=== PATIENT | male | born 1980 | race American Indian/Alaskan Native ===

== ENCOUNTER 2018-06-05 08:13 | Emergency (ER) | payer OTHER ==
[2018-06-05 08:14] VITALS: BMI 19.1
[2018-06-05] MEDS ORDERED: Sodium Chloride 0.9% 1,000 ML IV STA ×2 (09:37→14:52)
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
[2018-06-05 11:48] LABS: BASO # 0.03 K/mm3 (0.0-2.0); BASO % 0.2 % (0.0-3.0); GRAN # 11.74 (1.4-6.5); GRAN % 87.1 % (50.0-68.0); HEMOGLOBIN 13.6 g/dL (14.0-18.0); LYMPH # 1.2 (1.2-3.4); LYMPH % 8.7 % (22.0-35.0); MEAN CELL VOLUME 91.3 fl (80.0-105.0); MEAN CORPUSCULAR HEMOGLOBIN 32.9 pg (25.0-35.0); MEAN PLATELET VOLUME 9.8 fl (7.0-11.0); MONO # 0.5 (0.1-0.6); RBC 4.14 10^6/uL (3.5-6.1); RED CELL DISTRIBUTION WIDTH 12.9 % (11.5-14.5); WHITE BLOOD COUNT 13.5 10^3/ul (4.5-11.0)
[2018-06-05 13:47] LABS: ALB/GLOB RATIO 1.3 (1.1-1.8); ALBUMIN 3.7 g/dL (3.0-4.8); ALT/SGPT 20 U/L (7-56); AST/SGOT 43 U/L (17-59); BLOOD UREA NITROGEN 10 mg/dL (7-21); CALCIUM 8.8 mg/dL (8.4-10.5); GFR AFRICAN-AMERICAN > 60; GFR NON-AFRICAN AMERICAN > 60; LIPASE 63 U/L (23-300)
[2018-06-05 14:15] VITALS: TEMP 98.7
[2018-06-05] MEDS ORDERED: DiphenhydrAMINE 50 mg/ml Inj IVP STA (14:52)
[2018-06-05] MEDS ORDERED: Lidocaine 2% Viscous 100 ml PO STA (14:53)
[2018-06-05] MEDS ORDERED: Alum-Mag Hydrox-Simethicone Susp (30 mL) PO STA (14:53)
[2018-06-05] MEDS ORDERED: Atrop/Hyosc/Scopal/PB Elixir (120 ml) PO STA (14:53)
[2018-06-05] MEDS ORDERED: Morphine 2 mg/ml ISec IVP STA (15:10)
[2018-06-05] MEDS ORDERED: Iohexol 350 MG/100 ML VIAL ONE (15:12)
--- NOTE | 2018-06-05 15:48 | CT ---
Date of service: 06/05/2018 PROCEDURE: CT Abdomen and Pelvis with contrast HISTORY: abdominal pain COMPARISON: 06/27/2016 TECHNIQUE: Contrast dose: 100 cc of Omni 350 Radiation dose: Total exam DLP = 217 mGy-cm. This CT exam was performed using one or more of the following dose reduction techniques: Automated exposure control, adjustment of the mA and/or kV according to patient size, and/or use of iterative reconstruction technique. FINDINGS: LOWER THORAX: Unremarkable. LIVER: Unremarkable. No gross lesion or ductal dilatation. GALLBLADDER AND BILE DUCTS: Unremarkable. PANCREAS: Unremarkable. No gross lesion or ductal dilatation. SPLEEN: Unremarkable. ADRENALS: Unremarkable. No mass. KIDNEYS AND URETERS: Unremarkable. No hydronephrosis. No solid mass. VASCULATURE: Unremarkable. No aortic aneurysm. BOWEL: Unremarkable. No obstruction. No gross mural thickening. APPENDIX: Normal appendix. There is a paucity of abdominal fat which makes identification of the appendix more difficult. There are no obvious inflammatory changes PERITONEUM: There is a small amount of free fluid LYMPH NODES: Unremarkable. No enlarged lymph nodes. BLADDER: Unremarkable. REPRODUCTIVE: Unremarkable. BONES: No acute fracture. OTHER FINDINGS: None. IMPRESSION: No acute intra-abdominal findings. There is a paucity of abdominal fat which makes identification of the appendix more difficult. There are no obvious inflammatory changes
[2018-06-05 16:49] VITALS: BP 148/72; PULSE 76; RESP 18; O2SAT 98
[2018-06-05 17:25] LABS: BARBITURATES, UR NEGATIVE (NEGATIVE)
[2018-06-05 17:58] LABS: BENZODIAZEPINES, UR NEGATIVE (NEGATIVE); OPIATES, UR POSITIVE (NEGATIVE); PHENCYCLIDINE, UR NEGATIVE (NEGATIVE)
== END 2018-06-05 17:15 | disposition home or self-care (01) ==
LOC: ED 08:13
DX: R11.2 Nausea with vomiting, unspecified (principal); R10.9 Unspecified abdominal pain
CPT/HCPCS: 74177; 80053; 80324; 80345; 80346; 80349; 80353; 80358; 80361; 83690; 83992; 85025; 96361; 96374; 96375; 99285; C9113; J1200; J1885; J2270; J2405; J2765; J7030; Q9967

== ENCOUNTER 2019-02-12 14:33 | Emergency (ER) | payer OTHER ==
[2019-02-12 14:38] VITALS: BMI 19.8
[2019-02-12] MEDS ORDERED: CAPSAICIN 0.1% TOP ONE ×2 (15:03→15:15)
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
[2019-02-12 16:13] LABS: PH,URINE 6.5 (4.7-8.0); URINE APPEARANCE CLEAR (CLEAR); URINE BILIRUBIN NEGATIVE (NEGATIVE); URINE BLOOD TRACE-INTACT (NEGATIVE); URINE COLOR LIGHT YELLOW (YELLOW); URINE GLUCOSE (UA) NEGATIVE (NEGATIVE); URINE LEUKOCYTE ESTERASE NEGATIVE Leu/uL (NEGATIVE); URINE PROTEIN NEGATIVE mg/dL (<30 mg/dL); URINE UROBILINOGEN 0.2 E.U./dL (<1 E.U./dL)
[2019-02-12 16:14] VITALS: RESP 18; TEMP 98.3; O2SAT 100
[2019-02-12] MEDS ORDERED: Sodium Chloride 0.9% 1,000 ML IV STA (16:29)
[2019-02-12 16:48] LABS: BARBITURATES, UR NEGATIVE (NEGATIVE); BENZODIAZEPINES, UR NEGATIVE (NEGATIVE); OPIATES, UR NEGATIVE (NEGATIVE); PHENCYCLIDINE, UR NEGATIVE (NEGATIVE)
[2019-02-12] MEDS ORDERED: Haloperidol Lactate 2 mg/ml Liquid PO STA (16:51)
[2019-02-12 17:38] VITALS: BP 138/77; PULSE 65
== END 2019-02-12 18:20 | disposition home or self-care (01) ==
LOC: ED 14:33
DX: F12.10 Cannabis abuse, uncomplicated (principal); R11.10 Vomiting, unspecified
CPT/HCPCS: 80324; 80345; 80346; 80349; 80353; 80358; 80361; 81001; 83992; 96361; 96374; 96375; 99283; J1630; J1885; J2060; J2765; J7030